=== PATIENT | male | born 1985 | race American Indian/Alaskan Native ===

== ENCOUNTER 2017-01-30 13:20 | Emergency (ER) | payer SELFPAY ==
[2017-01-30] MEDS ORDERED: MOTRIN PO ONE (17:42)
[2017-01-30] MEDS ORDERED: DELTASONE PO ONE (17:42)
--- NOTE | 2017-01-30 18:33 | Emergency Department Report ---
Entered by NASRIN MORFIN, acting as scribe for SEUN MENDEZ PA. ED ENT HPI - General Chief complaint: Sore Throat Stated complaint: TONSILS SWOLLEN Time Seen by Provider: 01/30/17 16:47 Source: patient Mode of arrival: Ambulatory Limitations: No Limitations - History of Present Illness Initial comments: 31 year old male presents to the ED for evaluation of sore throat that began last night. He reports asscoiated throat swelling and difficulty swallowing but denies difficulty breathing. Notes increased oral secretions but denies drooling. Patient reports symptoms are similar to 2 previous episodes of tonsillitis. Denies fever, chills, abdominal pain, nausea, vomiting, and diarrhea. MD complaint: sore throat, difficulty swallowing -: Last night Location: throat Severity: severe Severity scale (0 -10): 10 Quality: constant Consistency: constant Improves with: none Worsens with: swallowing Associated Symptoms: pain with swallowing, sore throat, other (nasal congestion , increased oral secretions). denies: fever, cough, discharge from ear, rhinorrhea - Related Data Previous Rx's Medication Instructions Recorded Last Taken Type Amoxicillin [Amoxicillin TAB] 875 mg PO BID #20 tablet 01/30/17 Unknown Rx Cetirizine HCl [ZyrTEC] 10 mg PO QDAY #14 capsule 01/30/17 Unknown Rx Fluticasone [Flonase] 1 spray NS QDAY #1 bottle 01/30/17 Unknown Rx Ibuprofen [Motrin] 600 mg PO Q8H PRN #15 tablet 01/30/17 Unknown Rx Allergies Allergy/AdvReac Type Severity Reaction Status Date / Time Seafood Allergy Swelling Uncoded 01/30/17 14:13 ED Dental HPI - General Chief complaint: Sore Throat Stated complaint: TONSILS SWOLLEN Time Seen by Provider: 01/30/17 16:47 Source: patient Mode of arrival: Ambulatory Limitations: No Limitations - Related Data Previous Rx's Medication Instructions Recorded Last Taken Type Amoxicillin [Amoxicillin TAB] 875 mg PO BID #20 tablet 01/30/17 Unknown Rx Cetirizine HCl [ZyrTEC] 10 mg PO QDAY #14 capsule 01/30/17 Unknown Rx Fluticasone [Flonase] 1 spray NS QDAY #1 bottle 01/30/17 Unknown Rx Ibuprofen [Motrin] 600 mg PO Q8H PRN #15 tablet 01/30/17 Unknown Rx Allergies Allergy/AdvReac Type Severity Reaction Status Date / Time Seafood Allergy Swelling Uncoded 01/30/17 14:13 ED Review of Systems Comment: All other systems reviewed and negative Constitutional: denies: chills, fever ENT: throat pain (difficulty swallowing, swelling), congestion (nasal congestion ), other (Reports increased oral secreations. Denies drooling.). denies: ear pain Respiratory: denies: cough, shortness of breath Cardiovascular: denies: chest pain Gastrointestinal: denies: abdominal pain, nausea, vomiting, diarrhea Skin: denies: rash Neurological: denies: headache ED Past Medical Hx - Past Medical History Previous Medical History?: Yes Hx Seizures: Yes Hx Psychiatric Treatment: (Bipolar, OCD, anxiety disorder, depression) Hx Asthma: Yes Additional medical history: Tonsilitis - Surgical History Past Surgical History?: No - Family History Family history: no significant - Social History Smoking Status: Never Smoker Substance Use Type: None - Medications Home Medications: Home Medications Medication Instructions Recorded Confirmed Last Taken Type Amoxicillin [Amoxicillin TAB] 875 mg PO BID #20 tablet 01/30/17 Unknown Rx Cetirizine HCl [ZyrTEC] 10 mg PO QDAY #14 capsule 01/30/17 Unknown Rx Fluticasone [Flonase] 1 spray NS QDAY #1 bottle 01/30/17 Unknown Rx Ibuprofen [Motrin] 600 mg PO Q8H PRN #15 tablet 01/30/17 Unknown Rx ED Physical Exam - General Limitations: No Limitations General appearance: alert, in no apparent distress - Head Head exam: Present: atraumatic, normocephalic - Eye Eye exam: Present: normal appearance, PERRL, EOMI Pupils: Present: normal accommodation - ENT ENT exam: Present: mucous membranes moist, normal external ear exam, other ( bilateral turbinates are swollen and congested with no erythema). Absent: TM's normal bilaterally (bilateral TMs congested without erythema) - Expanded ENT Exam Expanded Ear exam: Present: normal external inspection TM/Canal exam: Effusion: Right TM, Left TM (bilateral congestion wtih no erythema) Mouth exam: Absent: drooling, tongue normal, tongue elevation, laceration Throat exam: Positive: tonsillar erythema, tonsillomegaly, other (uvula midline) . Negative: tonsillar exudate, R peritonsillar mass, L peritonsillar mass - Neck Neck exam: Present: normal inspection, full ROM, lymphadenopathy (anterior cervical lymphadenopathy). Absent: tenderness, meningismus, thyromegaly - Respiratory Respiratory exam: Present: normal lung sounds bilaterally. Absent: respiratory distress, wheezes, rales, rhonchi, stridor, chest wall tenderness, accessory muscle use, decreased breath sounds - Cardiovascular Cardiovascular Exam: Present: regular rate, normal rhythm, normal heart sounds. Absent: systolic murmur, diastolic murmur, rubs, gallop - GI/Abdominal GI/Abdominal exam: Present: soft, normal bowel sounds. Absent: distended, tenderness, guarding, rebound, rigid - Extremities Exam Extremities exam: Present: normal inspection, full ROM, normal capillary refill. Absent: pedal edema, other (clubbing, cyanosis, or edema) - Neurological Exam Neurological exam: Present: alert, oriented X3, normal gait, reflexes normal. Absent: motor sensory deficit - Psychiatric Psychiatric exam: Present: normal affect, normal mood - Skin Skin exam: Present: warm, dry, intact, normal color. Absent: rash, cyanosis ED Course Vital Signs 01/30/17 01/30/17 14:13 18:05 Temperature 98.2 F Pulse Rate 72 Respiratory 16 16 Rate Blood Pressure 134/96 O2 Sat by Pulse 100 Oximetry - Reevaluation(s) Reevaluation #1: 01/30/17 18:26 Patient given Deltasone 60 mg by mouth and Motrin 800 mg by mouth in emergency room. ED Medical Decision Making - Lab Data Rapid strep test negative and cultures are pending. - Medical Decision Making ED course: Patient with diagnosis of tonsillitis and tonsillar enlargement. had 2 similar episode in the past. She is also an upper respiratory tract infection. Discuss discharge diagnosis and treatment plan the patient is discharged home with prescription for Flonase, Zyrtec, Motrin and amoxicillin. ED Disposition Clinical Impression: Tonsillitis, Enlargement of tonsils Upper respiratory tract infection Qualifiers: URI type: unspecified URI Qualified Code(s): J06.9 - Acute upper respiratory infection, unspecified Disposition: DISCHARGED TO HOME OR SELFCARE Is pt being admited?: No Does the pt Need Aspirin: No Condition: Stable Instructions: Tonsillitis (ED), Upper Respiratory Infection (ED) Additional Instructions: increase her fluid intake Take medication as prescribed Prescriptions: Amoxicillin [Amoxicillin TAB] 875 mg PO BID #20 tablet Cetirizine HCl [ZyrTEC] 10 mg PO QDAY #14 capsule Fluticasone [Flonase] 1 spray NS QDAY #1 bottle Ibuprofen [Motrin] 600 mg PO Q8H PRN #15 tablet PRN Reason: Pain Referrals: [facility] [Outside] - 3-5 Days DMITRIY CRUM MD [Staff Physician] - 3-5 Days Forms: Work/School Release Form(ED) This documentation as recorded by the NAVJOT hernández REBEKAH,accurately reflects the service I personally performed and the decisions made by ,SEUN MENDEZ PA.
[2017-01-30 18:44] VITALS: BP 132/89
== END 2017-01-30 18:32 | disposition home or self-care (01) ==
LOC: ED 13:20
DX: J03.90 Acute tonsillitis, unspecified (principal); J35.3 Hypertrophy of tonsils with hypertrophy of adenoids; J06.9 Acute upper respiratory infection, unspecified; R56.9 Unspecified convulsions; F32.9 Major depressive disorder, single episode, unspecified; F41.9 Anxiety disorder, unspecified; Z91.013 Allergy to seafood
CPT/HCPCS: 87116; 87430; 99282; J7512